=== PATIENT | female | born 1980 | race Caucasian/White ===

== ENCOUNTER 2017-12-30 08:04 | Inpatient (IN) | payer OTHER ==
[~2017-12-30] VITALS: Ht 162.6 cm; Wt 74.0 kg
[2017-12-30] VITALS (25 sets, daily range): BP systolic 97–158; BP diastolic 55–92
[2017-12-30 09:15] LABS: BASOPHIL (%) 0.5 % (0-1); BASOPHIL COUNT 0.1 K/uL (0-0.1); EOSINOPHIL (%) 0.9 % (0-5); EOSINOPHIL COUNT 0.1 K/uL (0-0.3); HEMATOCRIT 31.6 % (36.0-46.0); HEMOGLOBIN 9.8 G/DL (11.9-15.5); IMMATURE GRANULOCYTE (%) 0.7 % (0.0-0.7); LYMPHOCYTE COUNT 2.9 K/uL (1.0-2.8); MCH 23.7 PG (29.0-34.0); MCV 76.3 FL (83-99); MONOCYTE (%) 9.4 % (3-12); MONOCYTE COUNT 0.9 K/uL (0-0.8); NEUTROPHIL (%) 58.5 % (45-76); NEUTROPHIL COUNT 5.6 K/uL (1.8-6.4); NRBC (%) 0.8 /100 WBC (0-0); PLATELET COUNT 282 K/uL (156-360); RBC DIS.WIDTH-CV 15.9 % (11.8-14.6); RBC DIS.WIDTH-SD 43.6 % (39-53); RED BLOOD COUNT 4.14 M/uL (3.80-5.20); WHITE BLOOD COUNT 9.5 K/uL (4.1-10.2)
[2017-12-30] MEDS ORDERED: LOW DOSE ASPIRI81 M1 PO (09:41)
[2017-12-30] MEDS ORDERED: PRENATAL GUMMI1 EACH PO (09:42)
[2017-12-30] MEDS ORDERED: ZANTAC75 M1 PO (09:43)
[2017-12-30] MEDS ORDERED: BENADRYL50 MG PO (09:44)
[2017-12-30] MEDS ORDERED: URSO250 MG PO (09:47)
[2017-12-30] MEDS ORDERED: Primrose Oil (09:50)
[2017-12-30 11:55] LABS: AMPHETAMINE NEGATIVE (500 ng/mL); BARBITURATES NEGATIVE (200 ng/mL); BENZODIAZEPINES NEGATIVE (150 ng/mL); BUPRENORPHINE NEGATIVE (10 ng/mL); COCAINE NEGATIVE (150 ng/mL); METHADONE NEGATIVE (200 ng/mL); METHAMPHETAMINE NEGATIVE (500 ng/mL); OPIATES (MORPHINE) NEGATIVE (100 ng/mL); OXYCODONE NEGATIVE (100 ng/mL); PHENCYCLIDINE NEGATIVE (25 ng/mL); PROPOXYPHENE NEGATIVE (300 ng/mL); THC CANNABINOIDS NEGATIVE (50 ng/mL); TRICYCLIC ANTIDEPRESSANTS NEGATIVE (300 ng/mL)
[2017-12-31 06:55] LABS: BASOPHIL (%) 0.4 % (0-1); BASOPHIL COUNT 0.1 K/uL (0-0.1); EOSINOPHIL (%) 0.8 % (0-5); EOSINOPHIL COUNT 0.1 K/uL (0-0.3); HEMATOCRIT 32.1 % (36.0-46.0); HEMOGLOBIN 9.8 G/DL (11.9-15.5); IMMATURE GRANULOCYTE (%) 0.5 % (0.0-0.7); LYMPHOCYTE (%) 21.2 % (15-42); LYMPHOCYTE COUNT 2.7 K/uL (1.0-2.8); MCH 23.2 PG (29.0-34.0); MCHC 30.5 G/DL (30.0-36.0); MCV 76.1 FL (83-99); MONOCYTE (%) 9.4 % (3-12); MONOCYTE COUNT 1.2 K/uL (0-0.8); NEUTROPHIL (%) 67.7 % (45-76); NEUTROPHIL COUNT 8.7 K/uL (1.8-6.4); NRBC (%) 0.2 /100 WBC (0-0); PLATELET COUNT 226 K/uL (156-360); RBC DIS.WIDTH-CV 15.7 % (11.8-14.6); RBC DIS.WIDTH-SD 42.6 % (39-53); RED BLOOD COUNT 4.22 M/uL (3.80-5.20); WHITE BLOOD COUNT 12.8 K/uL (4.1-10.2)
[2017-12-31 07:35] VITALS: BP 121/77
[2017-12-31 15:25] VITALS: BP 132/82
[2017-12-31 23:21] VITALS: BP 118/62
[2018-01-01 07:46] VITALS: BP 128/84
[2018-01-01] MEDS ORDERED: YAZ 28 TABLET1 EACH PO (11:20)
== END 2018-01-01 13:04 | disposition home or self-care (01) | DRG 775 ==
LOC: LDRP-OP 08:04 → 2WEST 08:05 → LDRP-OP 08:25 → 2WEST 19:03
PROVIDERS: Advanced Practice Midwife
DX: O69.81X0 Labor and delivery complicated by cord around neck, without compression, not applicable or unspecified (principal); O26.62 Liver and biliary tract disorders in childbirth; K83.1 Obstruction of bile duct; O99.02 Anemia complicating childbirth; D50.9 Iron deficiency anemia, unspecified; O99.284 Endocrine, nutritional and metabolic diseases complicating childbirth; E04.1 Nontoxic single thyroid nodule; O22.03 Varicose veins of lower extremity in pregnancy, third trimester; Z79.82 Long term (current) use of aspirin; Z3A.36 36 weeks gestation of pregnancy; Z37.0 Single live birth
CPT/HCPCS: 85025; 93971; C1755; J7120